=== PATIENT | female | born 1975 | race Asian ===

== ENCOUNTER 2024-06-25 06:34 | Day surgery (SDC) | payer OTHER ==
[2024-06-25] VITALS (8 sets, daily range): BP systolic 102–113; BP diastolic 53–74
[~2024-06-25] VITALS: Ht 170.2 cm; Wt 70.0 kg
[~2024-06-25 06:34] MED LIST: Ampicillin Sod/Sulbactam Sod 3 GM in NS 100 ML IV SCH; HYDCHL25 PO; IBUP800 PO; Lactated Ringer's 1,000 ML IV SCH; MIRENA1 EAC3 VAG; MULTI-VITAMIN1 EAC2 PO; NIFE60ER PO; [UNRECOGNIZED DRUG - OTHER] PO
--- NOTE | 2024-06-25 07:59 | NUR ---
History, Chart, Medications and Allergies reviewed before start of procedure. Patient up to Ambulate independently. Gait steady. Pre-Op teaching done. Pt verbalizes understanding. Patient confirms NPO status and agrees with scheduled surgery. Lungs clear T/O to Auscultation. Patient States Post-Procedure ride home has been arranged.
[2024-06-25] MEDS ORDERED: HYDROmorphone HCl/Pf 1MG SYR ONE (08:28)
[2024-06-25] MEDS ORDERED: Midazolam HCl 1MG / ML 2ML Vial ONE (08:28)
[2024-06-25] MEDS ORDERED: Lidocaine 1%-Epineph 1:200000 30 ML SDV ONE (08:29)
[2024-06-25] MEDS ORDERED: Bupivacaine 0.5% HCl 5 MG/ML 30MLVIAL ONE (08:29)
[2024-06-25] MEDS ORDERED: propofoL 50 ML IV ONE (08:32)
[2024-06-25] MEDS ORDERED: Ondansetron HCl 2 MG / ML 2ML Vial ONE ×2 (08:50→09:02)
[2024-06-25] MEDS ORDERED: Dexamethasone Sod Phos 10 MG/ML 1ML VIAL ONE (08:50)
[2024-06-25] MEDS ORDERED: Bacitracin Zinc Oint 1GRAM UD Packet TOP ONE (09:00)
[2024-06-25] MEDS ORDERED: Sugammadex Sodium 200 MG/2ML SDV (100 MG/ML) ONE (09:06)
[2024-06-25] MEDS ORDERED: Ketorolac Tromethamine 30mg Vial ONE (09:06)
[2024-06-25] MEDS ORDERED: Lidocaine HCl 2% 20 ML MDV ONE (09:16)
[2024-06-25] MEDS ORDERED: Ondansetron HCl 2 MG / ML 2ML Vial IV PRN (09:20)
[2024-06-25] MEDS ORDERED: OxyCODONE 5 mg/Acetamin 325 mg TABLET PO PRN (09:40)
--- NOTE | 2024-06-25 10:48 | NUR ---
Discharged via wheelchair to private car for ride home.
--- NOTE | 2024-06-25 10:48 | NUR ---
Patient up to Ambulate independently. Gait steady. Discharge instructions reviewed with patient. Patient verbalizes understanding. Copy given to patient to take home.W/ WRITTEN INSTRUCTIONS AN SITZ BATH
== END 2024-06-25 10:50 | disposition home or self-care (01) ==
LOC: ORSCMMR 06:34 → ORD 07:30 → ORSCMMR 07:30
PROVIDERS: Surgery
PROC: 06BY0ZC Excision of Hemorrhoidal Plexus, Open Approach (ICD-10-PCS; principal; 2024-06-25 08:30)
DX: K64.2 Third degree hemorrhoids (principal); K64.4 Residual hemorrhoidal skin tags; K59.00 Constipation, unspecified; I10 Essential (primary) hypertension; Z79.899 Other long term (current) drug therapy
CPT/HCPCS: 84703; 88304; J0295; J1100; J1171; J1885; J2250; J2405; J2704; J7120

== ENCOUNTER 2024-06-28 16:42 | Emergency (ER) | payer OTHER ==
[~2024-06-28] VITALS: Ht 170.2 cm; Wt 68.5 kg
[~2024-06-28 16:42] MED LIST changes: -Ampicillin Sod/Sulbactam Sod 3 GM in NS 100 ML IV SCH; -Lactated Ringer's 1,000 ML IV SCH
[2024-06-28] MEDS ORDERED: OxyCODONE HCL 5 MG TAB PO ONE (17:25)
[2024-06-28 17:39] LABS: BASOPHILS ABSOLUTE AUTO 0.02 K/mm3 (0.00-0.23); BASOPHILS PERCENT AUTO 0 % (0-2); EOSINOPHILS ABSOLUTE AUTO 0.03 K/mm3 (0.00-0.68); EOSINOPHILS PERCENT AUTO 0 % (0-6); Hematocrit 42.6 % (33.0-51.0); Hemoglobin 14.5 g/dL (11.5-16.0); IMMATURE GRAN ABSOLUTE AUTO 0.06 K/mm3 (0.00-0.10); IMMATURE GRAN PERCENT AUTO 0 % (0-1); LYMPHOCYTES ABSOLUTE AUTO 1.52 K/mm3 (0.84-5.20); LYMPHOCYTES PERCENT AUTO 11 % (21-46); MONOCYTES ABSOLUTE AUTO 0.98 K/mm3 (0.16-1.47); MONOCYTES PERCENT AUTO 7 % (4-13); Mean Corpuscular HGB 30.1 pg (26.0-34.0); Mean Corpuscular Volume 89 fL (80-100); Mean Platelet Volume 9.1 fL (9.1-12.4); NEUTROPHILS ABSOLUTE AUTO 11.58 K/mm3 (1.96-9.15); NEUTROPHILS PERCENT AUTO 82 % (41-73); Platelet Count 355 K/mm3 (150-400); RDW Coefficient Variation 12.1 % (11.7-14.2); RDW Standard Deviation 39.2 fL (35.1-46.3); Red Blood Cell Count 4.81 M/mm3 (3.80-5.20); White Blood Cell Count 14.19 K/mm3 (4.00-11.30)
[2024-06-28 18:05] LABS: Albumin, Blood 4.1 g/dL (3.4-5.0); Albumin/Globulin Ratio 1.1 (0.8-1.8); Bilirubin, Total 0.4 mg/dL (0.1-1.0); Bun/Creatinine Ratio 10.6 (12.0-20.0); Calcium, Blood 9.1 mg/dL (8.5-10.1); Creatinine, Blood 0.85 mg/dL (0.40-1.00); Globulin, Blood 3.7 g/dL (2.2-4.0); Potassium, Blood 4.3 mmol/L (3.5-5.5); Total Protein, Blood 7.8 g/dL (6.4-8.2)
[2024-06-28 18:27] VITALS: BP 136/84
[2024-06-28 18:44] LABS: Source, Urine Clean Catch
[2024-06-28 18:55] LABS: Appearance, Urine Clear (Clear); Bilirubin, Urine Neg (Neg); Blood, Urine Neg (Neg); Color, Urine Yellow (P-Yellow); Glucose Qualitative, Urine Neg (Neg); Ketones, Urine Neg (Neg); Leukocyte Esterase, Urine Neg (Neg); Nitrite, Urine Neg (Neg); Protein, Urine Neg (Neg); Specific Gravity, Urine 1.005 (1.003-1.022); Urobilinogen, Urine NORM (Normal)
== END 2024-06-28 19:37 | disposition home or self-care (01) ==
LOC: ER 16:42
PROVIDERS: Student in an Organized Health Care Education/Training Program
DX: R33.9 Retention of urine, unspecified (principal); Z87.19 Personal history of other diseases of the digestive system; I10 Essential (primary) hypertension; Z79.4 Long term (current) use of insulin; Z79.899 Other long term (current) drug therapy
CPT/HCPCS: 51702; 51798; 80053; 81003; 81025; 85025; 99283-25; A9270

== ENCOUNTER → 2024-07-02 | Outpatient (CLI) | payer OTHER | LOC: LAB 16:42 → LAB SHORT 16:42 | DX: N39.0 Urinary tract infection, site not specified (principal) | CPT/HCPCS: 87077; 87086; 87186 ==

== ENCOUNTER → 2024-10-22 | Outpatient (CLI) | payer OTHER ==
[2024-10-29 09:17] LABS: HPV HIGH RISK BY TMA Not Detected; HPV SOURCE Cervical
== END | disposition home or self-care (01) ==
LOC: LAB SHORT 13:08 → LAB 13:08
PROVIDERS: Family Medicine
DX: Z01.419 Encounter for gynecological examination (general) (routine) without abnormal findings (principal)
CPT/HCPCS: 87624; G0123

== ENCOUNTER → 2025-01-29 | Outpatient (CLI) | payer OTHER ==
[2025-01-29 13:56] LABS: Bacterial Vaginosis PCR Negative (NEGATIVE); Candida Group, PCR NOT DETECTED (NOT DETECT); Candida glabrata-krusei, PCR NOT DETECTED (NOT DETECT)
== END ==
LOC: LAB SHORT 11:11 → LAB 11:11
PROVIDERS: Family Medicine
DX: N89.8 Other specified noninflammatory disorders of vagina (principal)
CPT/HCPCS: 81515